=== PATIENT | female | born 1970 | race Caucasian/White ===

== ENCOUNTER 2017-12-20 15:48 | Emergency (ER) | payer OTHER ==
[2017-12-20 16:19] VITALS: BP 117/86; PULSE 95; TEMP 97.9; BMI 28.3
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
== END 2017-12-20 17:09 | disposition home or self-care (01) ==
LOC: JER 15:48 → JERFT 15:48
DX: S83.8X1A Sprain of other specified parts of right knee, initial encounter (principal); V19.9XXA Pedal cyclist (driver) (passenger) injured in unspecified traffic accident, initial encounter; Y92.488 Other paved roadways as the place of occurrence of the external cause; Y93.55 Activity, bike riding; Y99.8 Other external cause status
CPT/HCPCS: 73562-TC-RT-FY; 99281-25

== ENCOUNTER 2020-11-19 18:05 | Emergency (ER) | payer OTHER ==
[2020-11-19 18:25] VITALS: BP 136/99; PULSE 96; TEMP 99.5; BMI 28.3
[2020-11-19] MEDS ORDERED: IBUPROFEN 600 MG TABLET (FP) PO ONE ×2 (19:19→19:20)
== END 2020-11-19 19:26 | disposition home or self-care (01) ==
LOC: FER 18:05
DX: M94.0 Chondrocostal junction syndrome [Tietze] (principal)
CPT/HCPCS: 71045-TC-FY; 93005; 99284-25

== ENCOUNTER 2023-03-11 19:53 | Inpatient (IN) | payer OTHER ==
[2023-03-11] MEDS ORDERED: ACETAMINOPHEN 325 MG TABLET (FP) PO PRN (22:17)
[2023-03-11] MEDS: KETOROLAC TROMETHAMINE 30 MG/1 ML VIAL IVPUSH SCH (22:24)
[2023-03-11] MEDS: SODIUM CHLORIDE 1,000 ML IV SCH (22:24)
[2023-03-11] MEDS: CIPROFLOXACIN 400 MG/D5W 400 MG/200 ML IVPB IVPB SCH ×2 (22:25→23:37)
[2023-03-11 22:26] LABS: BASO % 0.7 % (0-2.0); EOS % 3.5 % (0-4.5); HEMATOCRIT 40.2 % (32.4-45.2); HEMOGLOBIN 13.1 GM/dL (10.7-15.3); LYMPH % 36.3 % (8-40); MCH 26.6 pg (25.7-33.7); MCHC 32.7 g/dl (32.0-36.0); MEAN CELL VOLUME 81.2 fl (80-96); MEAN PLT VOLUME 8.4 fl (7.5-11.1); MONO % 11.4 % (3.8-10.2); NEUT % 48.1 % (42.8-82.8); PLATELET COUNT 357 10^3/uL (134-434); RBC 4.95 M/mm3 (3.60-5.2); RDW 13.1 % (11.6-15.6); WHITE BLOOD COUNT 10.4 K/mm3 (4.0-10.0)
[2023-03-11] MEDS ORDERED: MUPIROCIN 2% TOPICAL OINTMENT FOR DECOLONIZATION NS SCH (22:30)
[2023-03-11] MEDS ORDERED: CIPROFLOXACIN 400 MG/D5W 400 MG/200 ML IVPB IVPB SCH (22:30)
[2023-03-11] MEDS ORDERED: KETOROLAC TROMETHAMINE 30 MG/1 ML VIAL ONE (22:30)
[2023-03-11 22:31] LABS: EPI CELLS 12 /uL (0-25.1); HYALINE CASTS 0 /uL (0-3.1); URINE APPEARANCE CLEAR; URINE BACTERIA 84 /uL (0-1359); URINE BILIRUBIN NEGATIVE (NEGATIVE); URINE COLOR YELLOW; URINE GLUCOSE (UA) NEGATIVE (NEGATIVE); URINE KETONE NEGATIVE (NEGATIVE); URINE LEUK ESTERASE 1+ (NEGATIVE); URINE NITRITE NEGATIVE (NEGATIVE); URINE PROTEIN NEGATIVE (NEGATIVE); URINE RBC 18 /uL (0-23.9); URINE UROBILINOGEN 0.2 mg/dL (0.2-1.0); URINE WBC 34 /uL (0-25.8)
[2023-03-11 22:32] LABS: INR 1.03 (0.83-1.09); PROTHROMBIN TIME (PATIENT) 11.9 SEC (9.7-13.0)
[2023-03-11 22:35] LABS: ACTIVATED PTT 30.7 SECONDS (25.2-36.5)
[2023-03-11 22:44] LABS: CHLORIDE 103 mmol/L (98-107); POTASSIUM 3.7 mmol/L (3.5-5.1); SODIUM 143 mmol/L (136-145)
[2023-03-11 22:47] LABS: ALBUMIN 3.4 g/dl (3.4-5.0); ANION GAP 7 MMOL/L (8-16); BLOOD UREA NITROGEN 19.9 mg/dL (7-18); CALCIUM 9.3 mg/dL (8.5-10.1); CO2 33 mmol/L (21-32); GLUCOSE,RANDOM 106 mg/dL (74-106); MAGNESIUM 2.3 mg/dL (1.8-2.4)
[2023-03-11 22:50] LABS: CREATININE 0.9 mg/dL (0.55-1.3); SGOT/AST 21 U/L (15-37); SGPT/ALT 24 U/L (13-61)
[2023-03-11 22:52] LABS: BILIRUBIN,TOTAL 0.1 mg/dL (0.2-1); TOT PROT 7.4 g/dl (6.4-8.2)
[2023-03-11 22:53] LABS: ALK PHOS 64 U/L (45-117)
[2023-03-12] MEDS: KETOROLAC TROMETHAMINE 30 MG/1 ML VIAL IVPUSH SCH ×3 (01:18→16:59)
[2023-03-12 04:12] VITALS: RESP 20; BMI 27.6
[2023-03-12] MEDS: SODIUM CHLORIDE 1,000 ML IV SCH ×2 (06:22→21:41)
[2023-03-12 07:53] LABS: HEMATOCRIT 37.4 % (32.4-45.2); HEMOGLOBIN 12.3 GM/dL (10.7-15.3); MCH 26.6 pg (25.7-33.7); MCHC 32.8 g/dl (32.0-36.0); MEAN CELL VOLUME 80.9 fl (80-96); MEAN PLT VOLUME 8.5 fl (7.5-11.1); PLATELET COUNT 329 10^3/uL (134-434); RBC 4.62 M/mm3 (3.60-5.2); RDW 13.4 % (11.6-15.6); WHITE BLOOD COUNT 7.9 K/mm3 (4.0-10.0)
[2023-03-12 09:33] LABS: POTASSIUM 3.4 mmol/L (3.5-5.1)
[2023-03-12 09:35] LABS: CALCIUM 8.1 mg/dL (8.5-10.1)
[2023-03-12 09:40] LABS: BILIRUBIN,TOTAL 0.2 mg/dL (0.2-1)
[2023-03-12] MEDS: PANTOPRAZOLE SODIUM 40 MG VIAL IVPUSH SCH (10:28)
[2023-03-12] MEDS: CIPROFLOXACIN 400 MG/D5W 400 MG/200 ML IVPB IVPB SCH (12:04)
[2023-03-12] MEDS: CEFTRIAXONE 1 GM in DEXTROSE 5%-WATER - 50 ML IVPB SCH (12:41)
[2023-03-12] MEDS ORDERED: POTASSIUM CHLORIDE TABS 10 MEQ TABLET.ER (FP) PO ONE (15:37)
[2023-03-12] MEDS ORDERED: CHLORHEXIDINE GLUCONATE 4% CLEANSER FOR DECOLONIZATION TP SCH (22:00)
[2023-03-13] MEDS: KETOROLAC TROMETHAMINE 30 MG/1 ML VIAL IVPUSH SCH ×2 (02:00→12:03)
[2023-03-13 07:56] LABS: HEMATOCRIT 35.1 % (32.4-45.2); HEMOGLOBIN 11.8 GM/dL (10.7-15.3); MCH 26.8 pg (25.7-33.7); MCHC 33.5 g/dl (32.0-36.0); MEAN CELL VOLUME 79.9 fl (80-96); MEAN PLT VOLUME 8.3 fl (7.5-11.1); PLATELET COUNT 325 10^3/uL (134-434); RBC 4.39 M/mm3 (3.60-5.2); WHITE BLOOD COUNT 7.6 K/mm3 (4.0-10.0)
[2023-03-13 08:06] LABS: POTASSIUM 3.9 mmol/L (3.5-5.1)
[2023-03-13 08:12] LABS: ALBUMIN 2.8 g/dl (3.4-5.0); BLOOD UREA NITROGEN 13.9 mg/dL (7-18)
[2023-03-13 08:14] LABS: CREATININE 0.7 mg/dL (0.55-1.3)
[2023-03-13 08:16] LABS: BILIRUBIN,TOTAL 0.2 mg/dL (0.2-1); TOT PROT 5.9 g/dl (6.4-8.2)
[2023-03-13] MEDS: PANTOPRAZOLE SODIUM 40 MG VIAL IVPUSH SCH (10:11)
[2023-03-13] MEDS: CEFTRIAXONE 1 GM in DEXTROSE 5%-WATER - 50 ML IVPB SCH (12:09)
[2023-03-13 17:33] VITALS: BP 112/77; PULSE 77; TEMP 98.7
== END 2023-03-13 16:15 | disposition home or self-care (01) | DRG 244 ==
LOC: JER 19:53 → JERBED 23:25 → J4W 03-12 01:06
PROVIDERS: ADMIT Family Medicine; ATTEND Family Medicine
DX: K57.32 Diverticulitis of large intestine without perforation or abscess without bleeding (principal); I10 Essential (primary) hypertension; F17.210 Nicotine dependence, cigarettes, uncomplicated; K52.9 Noninfective gastroenteritis and colitis, unspecified; R11.2 Nausea with vomiting, unspecified; R55 Syncope and collapse; N39.0 Urinary tract infection, site not specified
CPT/HCPCS: 0241U-QW; 36415; 71045-TC-FY; 80053; 80061; 81003; 82550; 83036; 83540; 83550; 83605; 83690; 83735; 84484; 85025; 85027; 85610; 85651; 85730; 86140; 87040; 87086; 93005; 93010; 93306-TC; 99285-25

== ENCOUNTER 2023-07-31 04:17 | Day surgery (SDC) | payer OTHER ==
[2023-07-28 13:30] VITALS: BMI 28.5
[2023-07-31 09:20] VITALS: RESP 18
[2023-07-31 14:20] VITALS: BP 100/55; PULSE 68; TEMP 98
== END 2023-07-31 11:24 | disposition home or self-care (01) ==
LOC: JASU-ENDO 04:17
PROVIDERS: ATTEND Internal Medicine Gastroenterology
PROC: 0DBL8ZX Excision of Transverse Colon, Via Natural or Artificial Opening Endoscopic, Diagnostic (ICD-10-PCS; principal; 2023-07-31 09:45)
DX: Z12.11 Encounter for screening for malignant neoplasm of colon (principal); K63.5 Polyp of colon; K64.8 Other hemorrhoids; I10 Essential (primary) hypertension
CPT/HCPCS: 88305-TC